=== PATIENT | female | born 1995 | race African-American/Black ===

== ENCOUNTER 2022-09-27 10:41 | Inpatient (IN) | payer OTHER ==
[~2022-09-27] VITALS: Ht 154.9 cm; Wt 51.3 kg
[2022-09-27] MEDS ORDERED: SODIUM CHLORIDE 0.9% 1,000 ML IV ONE (11:15)
[2022-09-27] MEDS ORDERED: ZOLPIDEM TARTRATE 5 MG TABLET PO PRN (11:45)
[2022-09-27 11:56] LABS: COVID AG,FIA SOURCE NASAL SWAB
[2022-09-27 12:00] LABS: BASOPHILS % (AUTO) 0.9 % (0.0-2.0); EOSINOPHILS % (AUTO) 0.4 % (1.0-6.0); HEMOGLOBIN 12.4 g/dL (12.0-16.0); LYMPHOCYTES # (AUTO) 1.9 K/uL (1.0-4.8); LYMPHOCYTES % (AUTO) 32.6 % (22.0-44.0); MEAN CORPUSCULAR HEMOGLOBIN 27.3 pg (26.0-34.0); MEAN CORPUSCULAR HGB CONC 32.7 G/dL (31.0-37.0); MEAN CORPUSCULAR VOLUME 83 fL (80-100); MONOCYTES # (AUTO) 0.5 K/uL (0.1-1.0); MONOCYTES % (AUTO) 7.9 % (2.0-9.0); NEUTROPHILS # (AUTO) 3.3 K/uL (1.8-7.7); NEUTROPHILS % (AUTO) 58.2 % (40.0-70.0); PLATELET COUNT (AUTO) 258 K/uL (150-450); RED BLOOD CELL COUNT(AUTO) 4.55 MIL/uL (4.00-5.20); RED CELL DISTRIBUTION WIDTH 13.7 % (11.5-14.5)
[2022-09-27 12:04] LABS: APPEARANCE,URINE CLEAR (CLEAR); BILIRUBIN,URINE NEGATIVE (NEGATIVE); GLUCOSE, URINE (UA) NEGATIVE (NEGATIVE); KETONES,URINE NEGATIVE (NEGATIVE); LEUKOCYTE ESTERASE ,URINE SMALL (NEGATIVE); NITRATE,URINE NEGATIVE (NEGATIVE); OCCULT BLOOD,URINE TRACE (NEGATIVE); PROTEIN,URINE NEGATIVE (NEGATIVE); SPECIFIC GRAVITIY, URINE 1.004 (1.003-1.030); UROBILINOGEN,URINE <=1.0 mg/dL (<=1.0)
[2022-09-27 12:09] LABS: ANION GAP 11 mmol/L (8-16); CALCIUM, TOTAL 9.7 mg/dL (8.8-10.5); CARBON DIOXIDE 25 mmol/L (22-29); CHLORIDE 101 mmol/L (98-107); CREATININE 0.78 mg/dL (0.60-1.30); GLOMERULAR FILTR. RATE CALC > 60 mL/min (>60); GLUCOSE,RANDOM 77 mg/dL (70-110); POTASSIUM 3.7 mmol/L (3.5-5.1); SODIUM SERUM 137 mmol/L (136-145)
[2022-09-27 12:10] LABS: AMPHET/METH SCREEN,URINE NEGATIVE (NEGATIVE); BARBITURATE SCREEN, URINE NEGATIVE (NEGATIVE); BENZODIAZEPINES SCREEN,URINE NEGATIVE (NEGATIVE); CANNABINOID SCREEN,URINE NEGATIVE (NEGATIVE); COCAINE SCREEN,URINE NEGATIVE (NEGATIVE); METHADONE SCREEN, URINE NEGATIVE (NEGATIVE); OPIATE SCREEN,URINE NEGATIVE (NEGATIVE); PHENCYCLIDINE SCREEN,URINE NEGATIVE (NEGATIVE)
[2022-09-27 12:15] LABS: ALANINE AMINOTRANSFERASE 13 U/L (12-78); ALBUMIN 4.7 g/dL (3.4-5.0); ALKALINE PHOSPHATASE 54 U/L (46-116); ASPARTATE AMINOTRANSFERASE 13 U/L (15-37); BILIRUBIN,TOTAL 0.7 mg/dL (0.1-1.0); TOTAL PROTEIN, SERUM 8.6 g/dL (6.4-8.2)
[2022-09-27 12:16] LABS: ACETAMINOPHEN < 2 mcg/mL (10-30)
[2022-09-27 12:18] LABS: SALICYLATE < 2.8 mg/dL (2.8-20.0)
[2022-09-27 12:19] LABS: BACTERIA,URINE Few /HPF (None Seen); RBC,URINE None Seen /HPF (0-2); SQUAMOUS EPITHELIAL CELL,UR Moderate /LPF (None Seen)
[2022-09-27] MEDS: LORazepam 1 MG TABLET PO PRN ×2 (12:49→16:30)
[2022-09-27 20:52] VITALS: BP 126/78; PULSE 100; RESP 17; TEMP 97.1; O2SAT 100
[2022-09-28 08:26] VITALS: BP 123/78; PULSE 93; RESP 17; TEMP 99.8; O2SAT 99
[2022-09-28] MEDS ORDERED: ONDANSETRON HCL 4 MG TABLET PO PRN (13:15)
[2022-09-28] MEDS ORDERED: IBUPROFEN 400 MG TABLET PO PRN (13:15)
[2022-09-28] MEDS ORDERED: PETROLATUM,WHITE 28 GM JELLY TP PRN (13:15)
[2022-09-28] MEDS ORDERED: DOCUSATE SODIUM 100 MG CAPSULE PO PRN (13:15)
[2022-09-28] MEDS ORDERED: LOPERAMIDE HCL 2 MG CAPSULE PO PRN (13:15)
[2022-09-28] MEDS ORDERED: GuaiFENesin/D-METHORPHAN [SUGAR-FREE] 200-20MG/10 ML SYRUP UDCUP PO PRN (13:15)
[2022-09-28] MEDS ORDERED: MAGNESIUM HYDROXIDE SUSPENSION 30 ML UDCUP PO PRN (13:15)
[2022-09-28] MEDS ORDERED: CloNIDine HCL 0.1 MG TABLET PO PRN (13:15)
[2022-09-28] MEDS ORDERED: NICOTINE 14 MG/24 HOUR PATCH TD PRN (13:15)
[2022-09-28] MEDS ORDERED: MAG HYDROX/AL HYDROX/SIMETH ES 30 ML SUSPENSION UDCUP PO PRN (13:15)
[2022-09-28] MEDS ORDERED: ALBUTEROL SULFATE HFA 90 MCG/PUFF 8 GM INHALER IH PRN (13:15)
[2022-09-28] MEDS ORDERED: ACETAMINOPHEN 325 MG TABLET PO PRN (13:15)
[2022-09-28] MEDS: ARIPiprazole 2 MG TABLET PO SCH (13:55)
[2022-09-28] MEDS: FLUoxetine HCL 10 MG CAPSULE PO SCH (15:57)
[2022-09-28 20:10] VITALS: BP 118/83; PULSE 88; RESP 18; TEMP 98.3; O2SAT 99
[2022-09-29 08:01] VITALS: BP 114/81; PULSE 83; RESP 18; TEMP 97.7; O2SAT 98
[2022-09-29] MEDS: FLUoxetine HCL 10 MG CAPSULE PO SCH (08:06)
[2022-09-29] MEDS: ARIPiprazole 2 MG TABLET PO SCH (08:06)
[2022-09-29 08:24] LABS: CHOL/HDL RATIO 3.7 (3.9-5.7); HEMOGLOBIN A1C 5.2 % (3.8-5.6); THYROID STIMULATING HORMONE 0.83 uIU/mL (0.36-3.74)
[2022-09-29] MEDS: QUEtiapine FUMARATE 100 MG TABLET PO PRN (08:53)
[2022-09-29 20:08] VITALS: BP 118/79; PULSE 91; RESP 18; TEMP 98; O2SAT 98
[2022-09-30] MEDS: LORazepam 1 MG TABLET PO PRN (03:06)
[2022-09-30] MEDS: QUEtiapine FUMARATE 100 MG TABLET PO PRN (03:49)
[2022-09-30 08:08] VITALS: BP 109/77; PULSE 95; RESP 18; TEMP 97.8; O2SAT 98
[2022-09-30] MEDS: ARIPiprazole 2 MG TABLET PO SCH (08:09)
[2022-09-30] MEDS: FLUoxetine HCL 10 MG CAPSULE PO SCH (08:09)
[2022-09-30] MEDS ORDERED: FLUO10CA24 PO (10:58)
[2022-09-30] MEDS ORDERED: ARIP2TAB27 PO ×2 (11:00→17:50)
[2022-09-30] MEDS ORDERED: PROZ10 PO (17:50)
== END 2022-09-30 13:00 | disposition home or self-care (01) | DRG 885 ==
LOC: EMS 10:44 → B2S 16:06
PROVIDERS: ADMIT Psychiatry & Neurology Child & Adolescent Psychiatry; ATTEND Psychiatry & Neurology Child & Adolescent Psychiatry
DX: F33.2 Major depressive disorder, recurrent severe without psychotic features (principal); Z20.822 Contact with and (suspected) exposure to COVID-19; F41.9 Anxiety disorder, unspecified; F22 Delusional disorders; G47.00 Insomnia, unspecified; Z88.0 Allergy status to penicillin; Z91.040 Latex allergy status
CPT/HCPCS: 80053; 80061; 80307; 81001; 83036; 83735; 84443; 84703; 85025; 93005; G0480; G0481